=== PATIENT | female | born 1970 | race Caucasian/White ===

== ENCOUNTER 2023-09-23 15:36 | Day surgery (SDC) | payer MEDICAID ==
[2023-09-23] MEDS ORDERED: XYLOCAINE-MPF 1% 5ML SDV IJ ONE (15:37)
[2023-09-23] MEDS ORDERED: SYNVISC 16 MG/2 ML SYRINGE IU ONE (15:37)
--- NOTE | 2023-09-23 20:57 | XRAY ---
Indication: Right knee injection. Intraoperative fluoroscopy provided for 5 seconds. Single digital spot images submitted for interpretation demonstrates needle tip projecting over right femur intercondylar notch. Small amount of contrast injected for needle tip placement. Correlate with intraoperative findings/report.
--- NOTE | 2023-09-23 20:57 | XRAY ---
Indication: Left knee injection. Intraoperative fluoroscopy provided for 6 seconds. Single digital spot images submitted for interpretation demonstrates needle tip projecting over left femur intercondylar notch. Small amount of contrast injected for needle tip placement. Correlate with intraoperative findings/report.
--- NOTE | 2023-09-24 09:17 | XRAY ---
5 seconds of fluoroscopy was used in surgery for a right intra-articular knee injection.
--- NOTE | 2023-09-24 09:18 | XRAY ---
6 seconds of fluoroscopy was used in surgery for a left intra-articular knee injection.
== END 2023-09-23 18:47 | disposition home or self-care (01) ==
LOC: SDC-PAIN 15:36
PROVIDERS: ATTEND Psychiatry & Neurology Pain Medicine
DX: M17.0 Bilateral primary osteoarthritis of knee (principal)
CPT/HCPCS: 20610; 73560; 77002; J7325; Q9966

== ENCOUNTER 2023-09-30 15:35 | Day surgery (SDC) | payer MEDICAID ==
[2023-09-30] MEDS ORDERED: XYLOCAINE-MPF 1% 5ML SDV IJ ONE (15:36)
[2023-09-30] MEDS ORDERED: SYNVISC 16 MG/2 ML SYRINGE IU ONE (15:36)
--- NOTE | 2023-09-30 20:11 | XRAY ---
Indication: Right knee injection. Intraoperative fluoroscopy provided for 5 seconds. Single digital spot image submitted for interpretation demonstrates needle tip projecting over right femur intercondylar notch. Small amount of contrast injected for needle tip placement. Correlate with intraoperative findings/report.
--- NOTE | 2023-09-30 20:11 | XRAY ---
Indication: Left knee injection. Intraoperative fluoroscopy provided for 3 seconds. Single digital spot image submitted for interpretation demonstrates needle tip projecting over left femur intercondylar notch. Small amount of contrast injected for needle tip placement. Correlate with intraoperative findings/report.
--- NOTE | 2023-10-01 09:16 | XRAY ---
5 seconds of fluoroscopy was used in surgery for a right intra-articular knee injection.
--- NOTE | 2023-10-01 09:17 | XRAY ---
3 seconds of fluoroscopy was used in surgery for a left intra-articular knee injection.
== END 2023-09-30 18:48 | disposition home or self-care (01) ==
LOC: SDC-PAIN 15:35
PROVIDERS: ATTEND Psychiatry & Neurology Pain Medicine
DX: M17.0 Bilateral primary osteoarthritis of knee (principal)
CPT/HCPCS: 20610; 73560; 77002; J7325; Q9966

== ENCOUNTER 2023-10-07 15:49 | Day surgery (SDC) | payer MEDICAID ==
[2023-10-07] MEDS ORDERED: SYNVISC 16 MG/2 ML SYRINGE IU ONE (15:50)
[2023-10-07] MEDS ORDERED: XYLOCAINE-MPF 1% 5ML SDV IJ ONE (15:50)
--- NOTE | 2023-10-07 20:24 | XRAY ---
Indication: Right knee injection Intraoperative fluoroscopy provided for 9 seconds. Single digital spot image submitted for interpretation demonstrates needle tip projecting over right femur intercondylar notch. Small amount of contrast injected for needle tip placement. Correlate with intraoperative findings/report.
--- NOTE | 2023-10-07 20:24 | XRAY ---
Indication: Left knee injection Intraoperative fluoroscopy provided for 4 seconds. Single digital spot image submitted for interpretation demonstrates needle tip projecting over left femur intercondylar notch. Small amount of contrast injected for needle tip placement. Correlate with intraoperative findings/report.
--- NOTE | 2023-10-08 09:37 | XRAY ---
9 seconds of fluoroscopy was used in surgery for a right intra-articular knee injection.
--- NOTE | 2023-10-08 09:37 | XRAY ---
4 seconds of fluoroscopy was used in surgery for a left intra-articular knee injection.
== END 2023-10-07 19:00 | disposition home or self-care (01) ==
LOC: SDC-PAIN 15:49
PROVIDERS: ATTEND Psychiatry & Neurology Pain Medicine
DX: M17.0 Bilateral primary osteoarthritis of knee (principal)
CPT/HCPCS: 20610; 73560; 77002; J7325; Q9966

== ENCOUNTER 2024-07-06 07:48 | Day surgery (SDC) | payer MEDICAID ==
[2024-07-06] MEDS ORDERED: Depo-Medrol 40 MG/ML IM ONE (07:49)
[2024-07-06] MEDS ORDERED: BUPIVACAINE 0.5% VIAL IJ ONE (07:49)
[2024-07-06] MEDS ORDERED: DIPRIVAN 200 MG/20 ML IV ONE (10:04)
--- NOTE | 2024-07-06 12:24 | XRAY ---
Indication: Right shoulder injection. Intraoperative fluoroscopy provided for 7 seconds. Single digital spot image submitted for interpretation demonstrates needle tip projecting over right glenohumeral joint superiorly. Small amount of contrast injected for needle tip placement. Correlate with intraoperative findings/report.
--- NOTE | 2024-07-06 12:36 | XRAY ---
7 seconds of fluoroscopy was used in surgery for a right intra-articular shoulder.
== END 2024-07-06 10:26 | disposition home or self-care (01) ==
LOC: SDC-PAIN 07:48
PROVIDERS: ATTEND Psychiatry & Neurology Pain Medicine
DX: M19.011 Primary osteoarthritis, right shoulder (principal)
CPT/HCPCS: 20550; 20610; 73030; 77002; 82947; J2704; Q9966

== ENCOUNTER 2025-01-10 06:01 | Day surgery (SDC) | payer MEDICAID ==
[2025-01-10 06:22] LABS: Absolute Neutrophil Ct (ANC) 5.39 x10^3/uL (1.56-6.13); BASOPHIL % 0.7 % (0.1-1.2); Basophil (Absolute #) 0.07 x10^3/uL (0.01-0.08); Eosinophil (Absolute #) 0.09 x10^3/uL (0.04-0.36); Hematocrit 43.6 % (34.1-44.9); Hemoglobin 14.1 g/dL (11.2-15.7); IMMATURE GRAN # 0.03 x10^3u/L (0.001-0.031); IMMATURE GRAN % 0.3 % (0.001-0.429); Lymphocyte (Absolute #) 2.97 x10^3/uL (1.18-3.74); Lymphocytes % 31.6 % (19.3-51.7); Mean Cell Volume 93.6 fL (79.4-94.8); Mean Corpuscular Hemoglobin 30.3 pg (25.6-32.2); Mean Corpuscular Hgb Concent. 32.3 g/dL (32.2-35.5); Mean Platelet Volume 9.7 fL (9.4-12.3); Monocyte (Absolute #) 0.85 x10^3/uL (0.24-0.86); Neutrophil % 57.4 % (34.0-71.1); Platelet Count 325 x10^3/uL (182-369); Red Blood Count 4.66 x10^6/uL (3.93-5.22); Red Cell Distribution Width 13.1 % (11.7-14.4); White Blood Count 9.4 x10^3/uL (3.98-10.04)
[2025-01-10] MEDS: PATIENT OWN MEDICATION IV ONE ×2 (06:30→06:34)
[2025-01-10 06:34] LABS: ALBUMIN 4.7 g/dL (3.5-5.0); ANION GAP 18.9 MEQ/L (5-15); BILIRUBIN,TOTAL 0.6 mg/dL (0.2-1.3); Calcium 9.3 mg/dL (8.4-10.2); Creatinine 1 0.57 mg/dL (0.52-1.04); Direct Bilirubin 0.2 mg/dL (0.0-0.4); EST GLOMERULAR FILTRATION RATE 107.3 ML/MIN; Potassium 4.1 mmol/L (3.5-5.1); Total Protein 8.1 g/dL (6.3-8.2)
[2025-01-10 06:35] LABS: INR 0.89 (0.8-3.0); PROTIME 9.8 SECONDS (9.4-12.5)
[2025-01-10] MEDS: Sodium Chloride 0.9% 1000 ML 1,000 ML IV SCH (06:39)
[2025-01-10 06:52] VITALS: RESP 18
[2025-01-10] MEDS: Levofloxacin 500MG/100ML D5W 500 MG/100 ML BAG IV ONE (07:07)
[2025-01-10] MEDS ORDERED: XYLOCAINE 1% HCL 20 ML MDV ONE (08:06)
[2025-01-10] MEDS ORDERED: Marcaine Mpf 0.5% Vial 30 Ml ONE (08:06)
[2025-01-10] MEDS ORDERED: SUBLIMAZE 100 MCG/2 ML ONE ×2 (09:23→10:51)
[2025-01-10] MEDS ORDERED: propofoL IV ONE ×4 (09:23→10:03)
[2025-01-10] MEDS ORDERED: Versed 2 MG/2 ML Injection ONE (09:23)
[2025-01-10 11:19] VITALS: O2SAT 97
[2025-01-10] MEDS: PATIENT OWN MEDICATION PO SCH (11:22)
[2025-01-10 11:34] VITALS: BP 126/65; PULSE 59; TEMP 96.3
--- NOTE | 2025-01-11 10:17 | OP ---
SURGERY DATE/TIME: 01/10/2025 [id number] PREOPERATIVE DIAGNOSES: 1) Ingrown toenails. 2) Right foot pain. 3) Left foot pain. POSTOPERATIVE DIAGNOSES: 1) Ingrown toenails. 2) Right foot pain. 3) Left foot pain. PROCEDURE: Nail avulsion with matrixectomy to digits 1 through 4 on the right and 2 through 4 on the left. SURGEON: Pio Abbott DPM HISTOLOGY AIDE: STANFORD Melara ANESTHESIA: Monitored anesthesia care. HEMOSTASIS: Pressure dressing. ESTIMATED BLOOD LOSS: Approximately 2 mL. MATERIALS: None. INJECTABLES: 20 mL of a 1:1 mixture of 1% lidocaine plain and 0.5% bupivacaine plain injected in an ankle block-type fashion to bilateral lower extremities. INDICATIONS: The patient is a very well known patient to my service with significant amount of mobility issues as well as pain to the toenails for which she has had toenail avulsion which has helped with the situations in the past before. Given her current situation, she is recommended to proceed with removal of the toenails and attempt at matrixectomy. All risks, complications, and benefits of the procedure were discussed with the patient which include, but are not limited to, infection, hematoma, seroma, possibility of delayed wound healing and non-wound healing, and possible need for further surgical intervention at a later time. Plenty of time was allowed for the patient to ask questions which were answered to her apparent satisfaction. It is at this time we decided to proceed. DESCRIPTION OF PROCEDURE AND FINDINGS: The patient was brought into the operating room and placed on the operating room table in the supine position. Monitored anesthesia care was provided until the patient was adequately sedated and then the bilateral lower extremities were prepped and draped in the typical sterile fashion. From that standpoint, a block at the level of the deep peroneal, saphenous, and superficial peroneal nerves as well as the posterior tibial nerve was blocked. This was a modified ankle block not including the sural nerve given us not addressing the 5th digit, I did not deem it necessary. At this time, we decided to proceed with the injections. After an adequate amount of time, the spatula and heel packer was then utilized to elevate the nail plate off of the nail bed. From that standpoint, a straight Angelica was then utilized in the bottle cap method to remove the toenails from sites 1 through 4 on the right and 2 through 4 on the left. A curette was then utilized to damage the nail matrix approximately for 1 minute apiece going across and making sure to scrape that nail cell layer, exposing it. From that standpoint, phenol was then utilized to chemically cauterize the nail matrix after placing Silvadene on the nail fold to prevent any of the phenol from traveling down the toes to cause any irritation. Once this was performed at 90 seconds apiece, making sure to coat the entire nail matrix, this was cleansed utilizing 70% isopropyl alcohol. Once this was performed, the toes were then cleansed. A dressing consisting of Silvadene, 2 x 2, and Coban was applied to each of the toes with moderate compression applied. The patient was then reversed from anesthesia and returned to the postoperative anesthesia care unit with vital signs stable and vascular status intact. The patient handled the anesthesia as well as the procedure without significant complication. Postoperative orders as indicated in the patient's discharge chart.
== END 2025-01-10 11:55 | disposition home or self-care (01) ==
LOC: SDC 06:01
PROVIDERS: ATTEND Podiatrist Foot & Ankle Surgery
DX: L60.0 Ingrowing nail (principal); I10 Essential (primary) hypertension; M79.672 Pain in left foot; M79.671 Pain in right foot
CPT/HCPCS: 11750; 36415; 80053; 80076; 85025; 85610; 93005; J1956; J2250; J2704; J3010

== ENCOUNTER 2025-07-05 09:34 | Day surgery (SDC) | payer MEDICAID ==
[2025-07-05] MEDS ORDERED: SYNVISC 16 MG/2 ML SYRINGE IU ONE ×2 (09:35)
[2025-07-05] MEDS ORDERED: propofoL IV ONE (12:06)
[2025-07-05] MEDS ORDERED: Lactated Ringers 1,000 ML IV ONE (14:03)
--- NOTE | 2025-07-05 14:48 | XRAY ---
Indication: Right knee injection. Intraoperative fluoroscopy provided for 4 seconds. Single digital spot image submitted for interpretation demonstrates needle tip projecting over right femur intercondylar notch. Small amount of contrast injected for needle tip placement. Correlate with intraoperative findings/report.
--- NOTE | 2025-07-05 14:48 | XRAY ---
Indication: Left knee injection. Intraoperative fluoroscopy provided for 2 seconds. Single digital spot image submitted for interpretation demonstrates needle tip projecting over left femur intercondylar notch. Small amount of contrast injected for needle tip placement. Correlate with intraoperative findings/report.
--- NOTE | 2025-07-05 15:04 | XRAY ---
4 seconds of fluoroscopy was used in surgery for a right intra-articular knee injection.
--- NOTE | 2025-07-05 15:05 | XRAY ---
2 seconds of fluoroscopy was used in surgery for a left intra-articular knee injection.
== END 2025-07-05 12:50 | disposition home or self-care (01) ==
LOC: SDC-PAIN 09:34
PROVIDERS: ATTEND Psychiatry & Neurology Pain Medicine
DX: M17.0 Bilateral primary osteoarthritis of knee (principal); R73.03 Prediabetes

== ENCOUNTER 2025-07-12 09:38 | Day surgery (SDC) | payer MEDICAID ==
[2025-07-12] MEDS ORDERED: SYNVISC 16 MG/2 ML SYRINGE IU ONE (09:39)
[2025-07-12] MEDS ORDERED: propofoL IV ONE (11:26)
[2025-07-12] MEDS ORDERED: Versed 2 MG/2 ML Injection ONE (11:34)
--- NOTE | 2025-07-12 12:36 | XRAY ---
Indication: Right knee injection. Intraoperative fluoroscopy provided for 3 seconds. Single digital spot image submitted for interpretation demonstrates needle tip projecting over right femur intercondylar notch. Small amount of contrast injected for needle tip placement. Correlate with intraoperative findings/report.
--- NOTE | 2025-07-12 12:36 | XRAY ---
Indication: Left knee injection. Intraoperative fluoroscopy provided for 5 seconds. Single digital spot image submitted for interpretation demonstrates needle tip projecting over left femur intercondylar notch. Small amount of contrast injected for needle tip placement. Correlate with intraoperative findings/report.
--- NOTE | 2025-07-12 12:52 | XRAY ---
3 seconds of fluoroscopy was used in surgery for a right intra-articular knee injection.
--- NOTE | 2025-07-12 12:53 | XRAY ---
5 seconds of fluoroscopy was used in surgery for a left intra-articular knee injection.
[2025-07-12] MEDS ORDERED: Lactated Ringers 1,000 ML IV ONE (14:49)
== END 2025-07-12 11:58 | disposition home or self-care (01) ==
LOC: SDC-PAIN 09:38
PROVIDERS: ATTEND Psychiatry & Neurology Pain Medicine
DX: M17.0 Bilateral primary osteoarthritis of knee (principal); R73.03 Prediabetes